=== PATIENT | female | born 1990 | race American Indian/Alaskan Native ===

== ENCOUNTER 2020-02-01 18:53 | Outpatient (CLI) | payer OTHER ==
[2020-02-01 19:38] VITALS: BP 108/60
== END 2020-02-01 20:52 | disposition home or self-care (01) ==
LOC: TRG 18:53 → LD 19:13 → TRG 20:52
PROVIDERS: ATTEND Obstetrics & Gynecology
DX: O26.893 Other specified pregnancy related conditions, third trimester (principal); M54.5 Low back pain; Z3A.32 32 weeks gestation of pregnancy
CPT/HCPCS: 59025

== ENCOUNTER 2021-10-06 19:47 | Emergency (ER) | payer OTHER ==
[2021-10-06 21:06] VITALS: BP 125/65
[2021-10-06 21:51] LABS: Basophils # (Auto) 0.2 K/mm3 (0.0-0.1); Basophils % (Auto) 2.1 % (0.0-1.8); Eosinophils # (Auto) 0.1 K/mm3 (0.0-0.4); Eosinophils % (Auto) 1.1 % (0.0-4.3); Hematocrit 38.2 % (30.3-42.9); Hemoglobin 12.7 gm/dl (10.1-14.3); Lymphocytes # (Auto) 0.8 K/mm3 (1.2-5.4); Mean Corpuscular HGB Conc 33 % (30-34); Mean Corpuscular Volume 91 fl (79-97); Monocytes # (Auto) 0.5 K/mm3 (0.0-0.8); Monocytes % (Auto) 4.4 % (0.0-7.3); Platelet Count 325 K/mm3 (140-440)
[2021-10-06 22:17] LABS: BUN/Creatinine Ratio 19; Blood Urea Nitrogen 15 mg/dL (7-17); Calcium 10.2 mg/dL (8.4-10.2); Hemolysis Index 7
== END 2021-10-06 23:45 | disposition left against medical advice (07) ==
LOC: ED 19:47
DX: O03.9 Complete or unspecified spontaneous abortion without complication (principal); Z53.21 Procedure and treatment not carried out due to patient leaving prior to being seen by health care provider; Z3A.13 13 weeks gestation of pregnancy
CPT/HCPCS: 36415; 80048; 84702; 85025